=== PATIENT | male | born 1965 | race African-American/Black ===

== ENCOUNTER 2018-05-26 21:44 | Emergency (ER) | payer MEDICARE, BC ==
[~2018-05-26] VITALS: Ht 182.9 cm; Wt 92.0 kg
[2018-05-27] MEDS ORDERED: HYDROCODONE/ACETAMINOPHEN 10/325MG TABLET PO ONE (01:45)
[2018-05-27 03:55] VITALS: BP 113/72
== END 2018-05-27 04:38 | disposition home or self-care (01) ==
LOC: ER 21:44
DX: G89.29 Other chronic pain (principal); M54.5 Low back pain; D64.9 Anemia, unspecified; I50.9 Heart failure, unspecified; I11.0 Hypertensive heart disease with heart failure; Z99.2 Dependence on renal dialysis
CPT/HCPCS: 99283

== ENCOUNTER 2018-06-05 07:07 | Inpatient (IN) | payer MEDICARE, MEDICAID ==
[2018-06-05] VITALS (45 sets, daily range): BP systolic 83–150; BP diastolic 53–82
[~2018-06-05] VITALS: Ht 177.8 cm; Wt 99.8 kg
[2018-06-05] MEDS ORDERED: PIPERACILLIN/TAZ 3.375G PREMIX 50 ML IV ONE (07:30)
[2018-06-05] MEDS ORDERED: VANCOMYCIN 1 G PREMIX 200 ML IV ONE (07:30)
[2018-06-05] MEDS ORDERED: SODIUM CHLORIDE 0.9% 1000ML BAG (SEPSIS BOLUS) IV ONE (07:30)
[2018-06-05 08:04] LABS: BASOPHILS % 0.7 % (0.0-2.0); EOSINOPHILS % 13.6 % (0.0-5.0); HEMATOCRIT. 33.5 % (42.0-52.0); HEMOGLOBIN. 11.2 g/dL (14.0-18.0); LYMPHOCYTES % 15.4 % (20.0-50.0); MEAN CORPUSCULAR HEMOGLOBIN 31.4 pg (28.0-32.0); MEAN CORPUSCULAR VOLUME 94.1 fL (80.0-94.0); MEAN PLATELET VOLUME 8.2 fl (7.4-10.4); MONOCYTES % 9.9 % (2.0-8.0); NEUTROPHILS % 60.4 % (40.0-76.0); PLATELET 244 x1000/uL (130-400); RED BLOOD CELL COUNT 3.56 mill/uL (4.7-6.1)
[2018-06-05 08:11] LABS: CHLORIDE 94 mEq/L (98-107)
[2018-06-05 08:12] LABS: INR 1.2; PARTIAL THROMBOPLASTIN TIME 25.2 sec (23.4-31.0); PROTHROMBIN TIME 11.6 sec (9.1-11.1)
[2018-06-05 08:14] LABS: ETHANOL BLOOD < 10 mg/dL
[2018-06-05 08:14] LABS: BG CARBOXYHEMOGLOBIN 0.6 % (0.5-1.5); BG DEOXYHEMOGLOBIN 4.8 % (0.0-5.0); BG HCO3 ACT 22.9 mmol/L (22.0-26.0); BG METHEMOGLOBIN 0.2 % (0.0-1.5); BG OXYGEN SATURATION 95.2 % (92.0-98.5); BG OXYHEMOGLOBIN 94.4 % (94.0-97.0); BG PCO2 44.3 mmHg (35.0-45.0); BG PH 7.331 (7.350-7.450); BG PO2 93.2 mmHg (75.0-100.0); BG SAMPLE SITE RIGHT RADIAL; BG TOTAL HEMOGLOBIN 11.8 g/dL (12.0-18.0); BG VENT MODE ROOM AIR
[2018-06-05] MEDS ORDERED: SODIUM POLYSTYRENE SULFONATE 15 G/60 ML BOT PO ONE (08:45)
[2018-06-05] MEDS ORDERED: ALBUTEROL (0.083%) 2.5MG/3ML NEB HHN ONE (08:45)
[2018-06-05] MEDS ORDERED: DEXTROSE 50% WATER 50ML SYRINGE IV ONE (08:45)
[2018-06-05] MEDS ORDERED: SODIUM BICARBONATE 8.4% 1 MEQ/ML 50ML SYR IV ONE (08:45)
[2018-06-05] MEDS ORDERED: CALCIUM GLUCONATE 100MG/ML 10ML VIAL IV ONE (08:45)
[2018-06-05] MEDS ORDERED: INSULIN REGULAR (HUMULIN R) 300UNITS/3ML IV ONE (08:45)
[2018-06-05] MEDS ORDERED: PIPERACILLIN/TAZ 3.375G PREMIX 50 ML IV SCH (10:00)
[2018-06-05] MEDS ORDERED: ONDANSETRON HCL 4MG/2ML INJ IV PRN (10:00)
[2018-06-05] MEDS ORDERED: IPRATROPIUM/ALBUTEROL 0.5-3(2.5)MG/3ML NEB HHN PRN (10:00)
[2018-06-05] MEDS ORDERED: NOREPINEPHRINE 4MG/250ML PMX 250 ML IV ONE (10:00)
[2018-06-05] MEDS ORDERED: ACETAMINOPHEN 325MG TABLET PO PRN (10:00)
[2018-06-05] MEDS ORDERED: LIDOCAINE HCL 1% 20ML VIAL (Pyxis) INJ ONE (10:01)
[2018-06-05] MEDS: NOREPINEPHRINE 4MG/250ML PMX 250 ML IV ONE ×2 (10:17→10:30)
[2018-06-05] MEDS ORDERED: VANCOMYCIN 500 MG PREMIX 100 ML IV NR (15:30)
[2018-06-05] MEDS: PIPERACILLIN/TAZ 2.25G PREMIX 50 ML IV SCH ×2 (15:32→22:42)
[2018-06-05] MEDS: NOREPINEPHRINE 4 MG in DEXTROSE 5% WATER 250 ML IV PRN ×2 (15:33→19:46)
[2018-06-05] MEDS ORDERED: CINA60 PO (17:40)
[2018-06-05] MEDS ORDERED: DICY10CA88 PO (17:40)
[2018-06-05] MEDS ORDERED: CLON0.2T PO (17:40)
[2018-06-05] MEDS ORDERED: AMLO-79 PO (17:40)
[2018-06-05] MEDS ORDERED: ASPI-1159 PO (17:40)
[2018-06-05] MEDS ORDERED: DOCU250C69 PO (17:40)
[2018-06-05] MEDS ORDERED: SEVE0.8P PO (17:40)
[2018-06-05] MEDS ORDERED: DEXTROSE 50% WATER 50ML SYRINGE IV NR (18:23)
[2018-06-05] MEDS ORDERED: PHENYLEPHRINE 40 MG in DEXT 5% WATER 246 ML IV PRN (18:30)
[2018-06-05] MEDS ORDERED: CALCIUM CHLORIDE 1,000 MG in DEXT 5% WATER 90 ML IV NR (19:00)
[2018-06-05] MEDS ORDERED: INSULIN REGULAR (HUMULIN R) UD 100 UNITS/ML SYR IV NR (19:00)
[2018-06-06] VITALS (31 sets, daily range): BP systolic 80–141; BP diastolic 28–103
[2018-06-06 05:54] LABS: BASOPHILS % 0.5 % (0.0-2.0); EOSINOPHILS % 10.5 % (0.0-5.0); HEMATOCRIT. 31.2 % (42.0-52.0); HEMOGLOBIN. 10.4 g/dL (14.0-18.0); LYMPHOCYTES % 10.5 % (20.0-50.0); MEAN CORPUSCULAR HEMOGLOBIN 30.9 pg (28.0-32.0); MEAN CORPUSCULAR VOLUME 92.8 fL (80.0-94.0); MEAN PLATELET VOLUME 7.7 fl (7.4-10.4); MONOCYTES % 9.6 % (2.0-8.0); NEUTROPHILS % 68.9 % (40.0-76.0); PLATELET 212 x1000/uL (130-400); RED BLOOD CELL COUNT 3.36 mill/uL (4.7-6.1)
[2018-06-06] MEDS: PIPERACILLIN/TAZ 2.25G PREMIX 50 ML IV SCH (06:28)
[2018-06-06] MEDS: SULFACETAMIDE SODIUM 10% OPHTH DROPS 15ML LEFTEYE SCH ×2 (09:10→13:07)
== END 2018-06-06 12:25 | DRG 871 ==
LOC: ER 07:20 → CVICU 09:30 → ENRESERV 11:30
PROVIDERS: ADMIT Internal Medicine; ATTEND Internal Medicine
PROC: 5A1D70Z Performance of Urinary Filtration, Intermittent, Less than 6 Hours Per Day (ICD-10-PCS; 2018-06-05)
PROC: 05H333Z Insertion of Infusion Device into Right Innominate Vein, Percutaneous Approach (ICD-10-PCS; 2018-06-05)
PROC: B54MZZA Ultrasonography of Right Upper Extremity Veins, Guidance (ICD-10-PCS; 2018-06-05)
PROC: 5A1D70Z Performance of Urinary Filtration, Intermittent, Less than 6 Hours Per Day (ICD-10-PCS; principal; 2018-06-06)
DX: A41.9 Sepsis, unspecified organism (principal); G93.41 Metabolic encephalopathy; N18.6 End stage renal disease; E87.1 Hypo-osmolality and hyponatremia; I13.11 Hypertensive heart and chronic kidney disease without heart failure, with stage 5 chronic kidney disease, or end stage renal disease; D63.8 Anemia in other chronic diseases classified elsewhere; E87.5 Hyperkalemia; E87.8 Other disorders of electrolyte and fluid balance, not elsewhere classified; E11.22 Type 2 diabetes mellitus with diabetic chronic kidney disease; E03.9 Hypothyroidism, unspecified; I25.10 Atherosclerotic heart disease of native coronary artery without angina pectoris; Z79.82 Long term (current) use of aspirin; Z99.2 Dependence on renal dialysis; I95.9 Hypotension, unspecified
CPT/HCPCS: 36415; 36569; 36600; 71045; 76937; 80048; 80320; 82140; 82375; 82805; 82962; 83605; 84132; 84145; 84443; 84484; 92610; 93005; 93970; 94640; 96365; 96366; 96368; 99291; C1725; J0610; J1815; J2543; J3370; J3490; J7030; J7050; J7060; J7611; G0480

== ENCOUNTER 2019-02-08 17:40 | Inpatient (IN) | payer MEDICARE, BC, MEDICAID ==
[~2019-02-08] VITALS: Ht 182.9 cm; Wt 122.6 kg
[~2019-02-08 17:40] MED LIST: AMLO-79 PO; ASPI-1393 PO; CINA60 PO; CLON0.2T PO; DICY10CA88 PO; DOCU250C69 PO; SEVE0.8P PO
[2019-02-08 22:13] LABS: EOSINOPHILS % 13.7 % (0.0-5.0); HEMATOCRIT. 37.3 % (42.0-52.0); HEMOGLOBIN. 12.1 g/dL (14.0-18.0); MEAN CORPUSCULAR HEMOGLOBIN 28.2 pg (28.0-32.0); MEAN CORPUSCULAR VOLUME 87.1 fL (80.0-94.0); MEAN PLATELET VOLUME 7.6 fl (7.4-10.4); MONOCYTES % 8.3 % (2.0-8.0); PLATELET 189 x1000/uL (130-400); RED BLOOD CELL COUNT 4.28 mill/uL (4.7-6.1); RED CELL DISTRIBUTION WIDTH 20.3 % (11.6-14.6)
[2019-02-08 22:18] LABS: CHLORIDE 97 mEq/L (98-107)
[2019-02-08] MEDS ORDERED: SODIUM BICARBONATE 8.4% 1 MEQ/ML 50ML SYR IV ONE (23:45)
[2019-02-08] MEDS ORDERED: INSULIN REGULAR (HUMULIN R) 300UNITS/3ML IV ONE (23:45)
[2019-02-08] MEDS ORDERED: SODIUM POLYSTYRENE SULFONATE 15 G/60 ML BOT PO ONE (23:45)
[2019-02-08] MEDS ORDERED: DEXTROSE 50% WATER 50ML SYRINGE IV ONE (23:45)
[2019-02-09] MEDS ORDERED: CLONIDINE 0.2MG TABLET PO STA (05:54)
[2019-02-09] MEDS ORDERED: AMLODIPINE 5MG TABLET PO STA (05:54)
[2019-02-09] MEDS ORDERED: IPRATROPIUM/ALBUTEROL 0.5-3(2.5)MG/3ML NEB HHN PRN (08:45)
[2019-02-09] MEDS ORDERED: ONDANSETRON HCL 4MG/2ML INJ IV PRN (08:45)
[2019-02-09] MEDS ORDERED: ACETAMINOPHEN 325MG TABLET PO PRN (08:45)
[2019-02-09 09:00] VITALS: BP 218/109
[2019-02-09] MEDS ORDERED: ENOXAPARIN 30MG/0.3ML SYR SUBCUT SCH (09:15)
[2019-02-09] MEDS: AMLODIPINE 10MG TABLET PO SCH (10:08)
[2019-02-09] MEDS ORDERED: INFLUENZA VIRUS VACCINE(AFLURIA) 0.5ML SYR IM ONE (10:15)
[2019-02-09] MEDS: CLONIDINE 0.1MG TABLET PO PRN (11:12)
[2019-02-09 11:48] VITALS: BP 199/97
[2019-02-09] MEDS: CLONIDINE 0.2MG TABLET PO SCH ×2 (13:20→21:00)
[2019-02-09] MEDS: HYDRALAZINE HCL 50MG TABLET PO SCH ×2 (13:21→21:00)
[2019-02-09 15:44] VITALS: BP 172/85
[2019-02-09 20:00] VITALS: BP 160/84
[2019-02-10] VITALS: BP 158/86
[2019-02-10 04:00] VITALS: BP 190/100
[2019-02-10] MEDS: CLONIDINE 0.1MG TABLET PO PRN (04:43)
[2019-02-10] MEDS ORDERED: HYDROCODONE/ACETAMINOPHEN 5/325MG TABLET PO PRN (06:30)
[2019-02-10 06:49] LABS: CHLORIDE 102 mEq/L (98-107)
[2019-02-10] MEDS: CLONIDINE 0.2MG TABLET PO SCH ×3 (06:50→16:17)
[2019-02-10] MEDS: HYDRALAZINE HCL 50MG TABLET PO SCH (06:50)
[2019-02-10 07:45] LABS: PHOSPHORUS 8.6 mg/dL (2.5-4.9)
[2019-02-10] MEDS: ENOXAPARIN 40MG/0.4ML SYR SUBCUT SCH (09:00)
[2019-02-10] MEDS: AMLODIPINE 10MG TABLET PO SCH (09:07)
[2019-02-10 09:29] VITALS: BP 170/74
[2019-02-10 12:00] VITALS: BP 160/78
[2019-02-10] MEDS: HYDRALAZINE HCL 100MG TABLET PO SCH ×2 (14:00→21:09)
[2019-02-10 16:00] VITALS: BP 143/67
[2019-02-10 16:52] LABS: HEMATOCRIT. 37.2 % (42.0-52.0); HEMOGLOBIN. 12.4 g/dL (14.0-18.0); MEAN CORPUSCULAR HEMOGLOBIN 28.4 pg (28.0-32.0); MEAN CORPUSCULAR VOLUME 85.4 fL (80.0-94.0); MEAN PLATELET VOLUME 7.6 fl (7.4-10.4); PLATELET 181 x1000/uL (130-400); RED BLOOD CELL COUNT 4.35 mill/uL (4.7-6.1); RED CELL DISTRIBUTION WIDTH 21.1 % (11.6-14.6)
[2019-02-10 20:00] VITALS: BP 157/65
[2019-02-10] MEDS ORDERED: DOXAZOSIN MESYLATE 2MG TABLET PO SCH (21:00)
[2019-02-10 22:11] LABS: PLATELET ESTIMATE NORMAL
[2019-02-11] VITALS: BP 120/53
[2019-02-11] MEDS: CLONIDINE 0.2MG TABLET PO SCH ×2 (05:38→16:23)
[2019-02-11] MEDS: HYDRALAZINE HCL 100MG TABLET PO SCH ×2 (05:38→16:23)
[2019-02-11 07:15] LABS: BASOPHILS % 0.9 % (0.0-2.0); EOSINOPHILS % 14.6 % (0.0-5.0); HEMATOCRIT. 34.9 % (42.0-52.0); HEMOGLOBIN. 11.4 g/dL (14.0-18.0); MEAN CORPUSCULAR HEMOGLOBIN 28.1 pg (28.0-32.0); MONOCYTES % 13.2 % (2.0-8.0); NEUTROPHILS % 58.3 % (40.0-76.0); PLATELET 186 x1000/uL (130-400); RED BLOOD CELL COUNT 4.06 mill/uL (4.7-6.1); RED CELL DISTRIBUTION WIDTH 20.5 % (11.6-14.6)
[2019-02-11 08:00] VITALS: BP 139/61
[2019-02-11] MEDS ORDERED: ASPI-1158 MT (08:25)
[2019-02-11] MEDS ORDERED: HYDR100T26 MT (08:25)
[2019-02-11] MEDS ORDERED: DOXA2TAB MT (08:25)
[2019-02-11] MEDS ORDERED: AMLO10TA80 MT (08:25)
[2019-02-11] MEDS ORDERED: CLON0.2T MT (08:25)
[2019-02-11] MEDS: ENOXAPARIN 40MG/0.4ML SYR SUBCUT SCH (09:44)
[2019-02-11] MEDS: AMLODIPINE 10MG TABLET PO SCH (09:44)
[2019-02-11 12:00] VITALS: BP 136/61
[2019-02-11 16:00] VITALS: BP 106/76
[2019-02-11 17:11] VITALS: BP 137/62
== END 2019-02-11 18:49 | disposition home health service (06) | DRG 682 ==
LOC: ER 17:40 → 7WST 02-09 04:27 → EDBEDREQTM 02-09 04:32 → EDBEDREQ 02-09 04:32 → EDBEDREQDT 02-09 04:32 → ENRESERV 02-09 07:33
PROVIDERS: ADMIT Internal Medicine Geriatric Medicine; ATTEND Internal Medicine Geriatric Medicine
PROC: 5A1D70Z Performance of Urinary Filtration, Intermittent, Less than 6 Hours Per Day (ICD-10-PCS; 2019-02-09)
PROC: 5A1D70Z Performance of Urinary Filtration, Intermittent, Less than 6 Hours Per Day (ICD-10-PCS; 2019-02-10)
PROC: 5A1D70Z Performance of Urinary Filtration, Intermittent, Less than 6 Hours Per Day (ICD-10-PCS; principal; 2019-02-11)
DX: I12.0 Hypertensive chronic kidney disease with stage 5 chronic kidney disease or end stage renal disease (principal); N18.6 End stage renal disease; E44.1 Mild protein-calorie malnutrition; I24.9 Acute ischemic heart disease, unspecified; E87.5 Hyperkalemia; D63.1 Anemia in chronic kidney disease; E11.22 Type 2 diabetes mellitus with diabetic chronic kidney disease; R07.89 Other chest pain; Z99.2 Dependence on renal dialysis; Z79.899 Other long term (current) drug therapy; Z68.36 Body mass index [BMI] 36.0-36.9, adult; Z79.84 Long term (current) use of oral hypoglycemic drugs; Z91.15 Patient's noncompliance with renal dialysis
CPT/HCPCS: 36415; 71045; 80048; 83735; 83880; 84100; 84132; 84484; 90686; 93005; 93306; 96365; 96375; 97162; 99291; J1650; J1815; J3490; J7620